=== PATIENT | female | born 1945 | race Caucasian/White ===

== ENCOUNTER 2022-06-05 09:59 | Outpatient (CLI) | payer OTHER | END 2022-06-05 10:00 | disposition home or self-care (01) | LOC: BICRAD 09:59 | PROVIDERS: ATTEND Thoracic Surgery (Cardiothoracic Vascular Surgery) | DX: J93.9 Pneumothorax, unspecified (principal); J90 Pleural effusion, not elsewhere classified; J98.11 Atelectasis; J98.4 Other disorders of lung | CPT/HCPCS: 71046 ==

== ENCOUNTER 2022-07-14 09:33 | Outpatient (CLI) | payer OTHER | END 2022-07-14 09:34 | disposition home or self-care (01) | LOC: BICRAD 09:33 | PROVIDERS: ATTEND Thoracic Surgery (Cardiothoracic Vascular Surgery) | DX: J93.9 Pneumothorax, unspecified (principal); J90 Pleural effusion, not elsewhere classified | CPT/HCPCS: 71046 ==

== ENCOUNTER 2022-07-14 12:04 | Day surgery (SDC) | payer OTHER ==
[2022-07-11 14:22] VITALS: BMI 24.7
== END 2022-07-14 13:10 | disposition home or self-care (01) ==
LOC: SDC 12:04
PROVIDERS: ATTEND Thoracic Surgery (Cardiothoracic Vascular Surgery)
PROC: 0W993ZZ Drainage of Right Pleural Cavity, Percutaneous Approach (ICD-10-PCS; principal; 2022-07-14)
DX: J90 Pleural effusion, not elsewhere classified (principal); Z79.02 Long term (current) use of antithrombotics/antiplatelets; Z79.890 Hormone replacement therapy; Z79.899 Other long term (current) drug therapy
CPT/HCPCS: 32554; 71045; 71046

== ENCOUNTER 2022-07-28 13:11 | Outpatient (CLI) | payer OTHER | END 2022-07-28 13:12 | disposition home or self-care (01) | LOC: BICRAD 13:11 | PROVIDERS: ATTEND Thoracic Surgery (Cardiothoracic Vascular Surgery) | DX: J90 Pleural effusion, not elsewhere classified (principal); J93.9 Pneumothorax, unspecified | CPT/HCPCS: 71046 ==

== ENCOUNTER 2022-09-04 10:50 | Outpatient (CLI) | payer OTHER, MEDICARE | END 2022-09-04 10:51 | disposition home or self-care (01) | LOC: BICRAD 10:50 | PROVIDERS: ATTEND Thoracic Surgery (Cardiothoracic Vascular Surgery) | DX: J93.9 Pneumothorax, unspecified (principal); J91.8 Pleural effusion in other conditions classified elsewhere | CPT/HCPCS: 71046 ==

== ENCOUNTER 2022-09-08 08:47 | Day surgery (SDC) | payer OTHER ==
[2022-09-04 15:16] VITALS: BMI 23.8
[2022-09-08 11:31] LABS: Pleural Fluid, Protein 2.9 g/dL
[2022-09-08 11:32] LABS: RBC Count-Automated (BF) 223 /cu.mm; WBC/Nucleated-Auto (BF) 190 /cu.mm
[2022-09-08 11:36] LABS: BF Color Yellow; Body Fluid Source Pleural Fluid; Clarity Hazy (Clear)
[2022-09-08 12:20] LABS: Fluid, pH - Pleural Fld Greater than 7.50 (7.60 - 7.66)
[2022-09-08 12:28] LABS: BF Segmented Neutrophils 8 %; Cell Count Non Hematic 84 %; Lymphocytes 8 %
== END 2022-09-08 11:08 | disposition home or self-care (01) ==
LOC: SDC 08:47
PROVIDERS: ATTEND Internal Medicine Critical Care Medicine
PROC: 0W993ZZ Drainage of Right Pleural Cavity, Percutaneous Approach (ICD-10-PCS; principal; 2022-09-08)
DX: J90 Pleural effusion, not elsewhere classified (principal); Z95.1 Presence of aortocoronary bypass graft; Z79.02 Long term (current) use of antithrombotics/antiplatelets; Z79.890 Hormone replacement therapy; Z79.899 Other long term (current) drug therapy
CPT/HCPCS: 32554; 82150; 82945; 83615; 83986; 84157; 85060; 87070; 87205; 88112; 88305; 88341; 88342; 89051

== ENCOUNTER 2022-09-23 10:32 | Outpatient (CLI) | payer OTHER | END 2022-09-23 10:33 | disposition home or self-care (01) | LOC: RAD 10:32 | PROVIDERS: ATTEND Internal Medicine Critical Care Medicine | DX: R06.00 Dyspnea, unspecified (principal); J16.8 Pneumonia due to other specified infectious organisms; J98.4 Other disorders of lung | CPT/HCPCS: 71046 ==